=== PATIENT | male | born 1960 | race Caucasian/White ===

== ENCOUNTER 2019-08-16 16:28 | Emergency (ER) | payer MEDICARE, BC ==
[~2019-08-16] VITALS: Ht 175.3 cm; Wt 77.1 kg
--- NOTE | 2019-08-16 16:44 | NUR ---
DR. HERNÁNDEZ AND ADIA RODRIGUES AT BEDSIDE FOR PT ASSESSMENT AT THIS TIME.
[2019-08-16] MEDS ORDERED: HYDROMORPHONE 1MG/1ML INJ IV STA (17:00)
[2019-08-16] MEDS ORDERED: ONDANSETRON HCL INJ 2MG/ML 2ML 2 MG/ML VIAL IV STA (17:00)
[2019-08-16] MEDS ORDERED: PANTOPRAZOLE 40 MG 10ML VIAL IV STA (17:00)
[2019-08-16 17:32] LABS: BASOPHILS # (AUTO) 0.1 (0.0-0.1); BASOPHILS % 1.1 % (0.0-1.0); EOSINOPHILS % 0.5 % (0.0-6.0); HEMOGLOBIN 8.1 g/dL (14.0-18.0); LYMPHOCYTES # (AUTO) 3.4 (1.0-3.2); LYMPHOCYTES % 52.3 % (18.0-39.1); MEAN CORPUSCULAR HEMOGLOBIN 28.8 pg (28-32); MEAN CORPUSCULAR HGB CONC 32.4 g/dL (31-35); MONOCYTES # (AUTO) 0.4 (0.2-0.8); MONOCYTES % 6.8 % (4.4-11.3); NEUTROPHILS # (AUTO) 2.1 (2.1-6.9); NEUTROPHILS % 31.5 % (38.7-80.0); PLATELET COUNT 96 x10e3/uL (140-360); RED BLOOD COUNT 2.81 x10e6/uL (4.3-5.7); RED CELL DISTRIBUTION WIDTH 13.9 % (11.7-14.4)
[2019-08-16 17:42] LABS: INR 1.13
[2019-08-16 17:43] LABS: PARTIAL THROMBOPLASTIN TIME 28.1 seconds (23.8-35.5)
[2019-08-16 17:52] LABS: ALANINE AMINOTRANSFERASE 19 IU/L (0-55); ALBUMIN 2.2 g/dL (3.5-5.0); ALBUMIN/GLOBULIN RATIO 0.6 (0.8-2.0); ALKALINE PHOSPHATASE 146 IU/L (40-150); ANION GAP 15.2 mmol/L (8-16); BLOOD UREA NITROGEN 14 mg/dL (7-26); BUN/CREATININE RATIO 17 (6-25); CALCIUM 10.3 mg/dL (8.4-10.2); CARBON DIOXIDE 30 mmol/L (22-29); CHLORIDE 94 mmol/L (98-107); CREATININE, SERUM 0.82 mg/dL (0.72-1.25); EST GLOMERULAR FILTRATION RATE > 60 ML/MIN (60-); GLUCOSE 98 mg/dL (74-118); POTASSIUM 3.2 mmol/L (3.5-5.1); SODIUM 136 mmol/L (136-145)
[2019-08-16 17:59] LABS: CREATINE KINASE < 7 IU/L (30-200)
--- NOTE | 2019-08-16 19:05 | NUR ---
REPORT GIVEN TO GODWIN BARRIOS
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
[2019-08-16 20:09] LABS: ANISOCYTOSIS SLIGHT; BAND NEUTROPHILS % (MANUAL) 1 %; HYPOCHROMASIA MODERATE; LYMPHOCYTES % (MANUAL) 49 % (19-48); MONOCYTES % (MANUAL) 17 % (3.4-9.0); NEUTROPHILS % (MANUAL) 25 % (40-74); RBC MORPHOLOGY COMMENT NORMAL; STOMATOCYTES SLIGHT
[2019-08-16 20:10] LABS: PLATELET ESTIMATE SLIGHTLY DECREASED; PLATELET MORPHOLOGY COMMENT NORMAL
[2019-08-16 20:36] VITALS: BP 127/81
== END 2019-08-16 20:42 | disposition home or self-care (01) ==
LOC: ER 16:34
DX: M54.41 Lumbago with sciatica, right side (principal); G20 Parkinson's disease; I10 Essential (primary) hypertension; E11.9 Type 2 diabetes mellitus without complications; F39 Unspecified mood [affective] disorder
CPT/HCPCS: 36415; 71045; 72110; 73502; 73552; 80053; 82550; 82553; 84484; 85025; 85610; 85730; 99284; C9113; J1170; J2405

== ENCOUNTER 2019-08-25 03:42 | Emergency (ER) | payer BC, MEDICARE ==
[~2019-08-25] VITALS: Ht 175.3 cm; Wt 77.1 kg
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
--- NOTE | 2019-08-25 05:27 | Diagnostic Imaging Report ---
Examination: CT head without contrast Clinical Indication: Fall with head injury. Technique: Transaxial noncontrast images from the skull base through the vertex were obtained. Sagittal and coronal reformatted images were done. Dose modulation, iterative reconstruction, and/or weight based adjustment of the mA/kV was utilized to reduce the radiation dose to as low as reasonably achievable. Comparison: None. Findings: Scalp: Small right frontal salp hematoma. Bones: Intact. No fractures. No blastic or lytic lesions. Brain sulci: Mild for patient's age. Ventricles: No hydrocephalus. Extra-axial space: No large hemorrhage.. Parenchyma: There are confluent areas of hypoattenuation in the periventricular and subcortical white matter, nonspecific No large masses, large hemorrhage, or large acute or chronic cortical based vascular insults. Suprasellar region: No abnormalities. Craniocervical junction: The foramen magnum is patent. No Chiari one malformation. Impression: Small right frontal salp hematoma. No intraparenchymal or extra-axial hemorrhage or acute territorial infarct. Mild chronic microvascular ischemic change and volume loss. Signed by: Dr. Leslee Pepe M.D. on 08/25/2019 5:24 AM
--- NOTE | 2019-08-25 05:30 | Diagnostic Imaging Report ---
Examination: CT CERVICAL SPINE WO CONTRAST HISTORY:Neck pain after fall. COMPARISON:None. TECHNIQUE: Multidetector helical axial images were obtained without contrast from the foramen magnum to T1. Coronal and sagittal reformatted images were done. Bone and soft tissue windows were evaluated. Dose modulation, iterative reconstruction, and/or weight based adjustment of the mA/kV was utilized to reduce the radiation dose to as low as reasonably achievable. FINDINGS: Alignment:Normal alignment and lordosis. Vertebrae: Normal height and density. No acute fracture, infection or neoplasm. Caliber of spinal canal: Developmentally normal. Posterior fossa and craniocervical junction: Foramen magnum patent. No Chiari 1 malformation. Soft tissues: No abnormality. Degenerative changes: No disc bulge/ herniation or canal stenosis. Visualized lung apices: No abnormalities. IMPRESSION: No acute abnormalities. Signed by: Dr. Leslee Pepe M.D. on 08/25/2019 5:27 AM
[2019-08-25 05:39] VITALS: BP 105/64
== END 2019-08-25 05:50 | disposition home or self-care (01) ==
LOC: ER 03:42
DX: S00.83XA Contusion of other part of head, initial encounter (principal); S00.411A Abrasion of right ear, initial encounter; S60.512A Abrasion of left hand, initial encounter; W01.0XXA Fall on same level from slipping, tripping and stumbling without subsequent striking against object, initial encounter; Y92.008 Other place in unspecified non-institutional (private) residence as the place of occurrence of the external cause; G20 Parkinson's disease; I10 Essential (primary) hypertension; E11.9 Type 2 diabetes mellitus without complications
CPT/HCPCS: 70450; 72125; 99283